=== PATIENT | female | born 1935 | race Caucasian/White ===

== ENCOUNTER 2017-02-25 11:00 | Emergency (ER) | payer MEDICARE, MEDICAID ==
[2017-02-25 11:13] VITALS: O2SAT 96
--- NOTE | 2017-02-25 11:15 | ED PDOC ---
HPI: Chest Pain Time Seen by Provider: 02/25/17 11:08 Chief Complaint (Nursing): Chest Pain History Per: Patient (Substernal chest pain x 1 week. Worse on inspirartion. No SOB. No cough or fever. Pain is non-radiating.) Onset/Duration Of Symptoms: Days (7) Quality: Aching Associated Symptoms: denies: Dyspnea Exacerbating Factors: Deep Breathing Alleviating Factors: None Past Medical History Vital Signs: Last Vital Signs Temp 98.3 F 02/25/17 11:12 Pulse 72 02/25/17 11:12 Resp 19 02/25/17 11:12 BP 134/83 02/25/17 11:12 Pulse Ox 96 02/25/17 11:15 - Medical History PMH: HTN - Family History Family History: States: Unknown Family Hx - Home Medications Home Medications: Ambulatory Orders Medication Instructions Recorded Albuterol 0.083% [Albuterol 0.083% 2.5 mg IH Q8 #1 neb 02/25/17 Inhal Jazmin (2.5 mg/3 ml) UD] Non-Formulary 1 ea .ROUTE Q6 #1 ea 02/25/17 predniSONE [predniSONE Tab] 10 mg PO TID #15 tab 02/25/17 - Allergies Allergies/Adverse Reactions: Allergies Allergy/AdvReac Type Severity Reaction Status Date / Time No Known Allergies Allergy Verified 02/25/17 11:03 Review of Systems ROS Statement: Except As Marked, All Systems Reviewed And Found Negative Cardiovascular: Positive for: Chest Pain Respiratory: Positive for: Pleuritic Pain. Negative for: Cough, Shortness of Breath Physical Exam - Reviewed Nursing Documentation Reviewed: Yes Vital Signs Reviewed: Yes - Physical Exam Appears: Positive for: Non-toxic, No Acute Distress Head Exam: Positive for: ATRAUMATIC, NORMAL INSPECTION, NORMOCEPHALIC Skin: Positive for: Normal Color, Warm, DRY Eye Exam: Positive for: EOMI, Normal appearance, PERRL ENT: Positive for: Normal ENT Inspection Neck: Positive for: Normal, Painless ROM Cardiovascular/Chest: Positive for: Regular Rate, Rhythm Respiratory: Positive for: CNT, Normal Breath Sounds Gastrointestinal/Abdominal: Positive for: Normal Exam, Bowel Sounds, Soft Back: Positive for: Normal Inspection Extremity: Positive for: Normal ROM Neurologic/Psych: Positive for: Alert, Oriented - Laboratory Results Result Diagrams: 02/25/17 11:30 11/30/17 11:30 - ECG O2 Sat by Pulse Oximetry: 96 Medical Decision Making Medical Decision Making: D/W Dr Espinoza. Most likely sxs are from pulmonary fibrosis and not CAD. Will dc on nebs and prednisone with f/u in office. Disposition - Clinical Impression Clinical Impression: Pulmonary fibrosis - Patient ED Disposition Is Patient to be Admitted: No Counseled Patient/Family Regarding: Studies Performed, Diagnosis, Need For Followup, Rx Given - Disposition Referrals: Vic Espinoza MD [Family Provider] - Disposition: Routine/Home Disposition Time: 13:57 Condition: FAIR Prescriptions: Albuterol 0.083% [Albuterol 0.083% Inhal Jazmin (2.5 mg/3 ml) UD] 2.5 mg IH Q8 #1 neb Non-Formulary 1 ea .ROUTE Q6 #1 ea predniSONE [predniSONE Tab] 10 mg PO TID #15 tab Instructions: Pulmonary Fibrosis (ED) Forms: [email or web address] (Swazi)
[2017-02-25 11:40] LABS: BASO # 0.1 K/uL (0.0-0.2); BASO % 0.6 % (0.0-2.0); EOS # 0.2 K/uL (0.0-0.7); EOS % 1.5 % (0.0-4.0); HEMATOCRIT 37.1 % (34.0-47.0); LYMPH % 16.4 % (20.0-40.0); MEAN CELL VOLUME 88.8 fl (81.0-99.0); MEAN CORPUSCULAR HEMOGLOBIN 28.7 pg (27.0-31.0); MEAN CORPUSCULAR HGB CONC 32.3 g/dL (33.0-37.0); MEAN PLATELET VOLUME 8.7 fl (7.2-11.7); MONO # 0.8 K/uL (0.0-0.8); MONO % 6.4 % (0.0-10.0); NEUT % 75.1 % (50.0-75.0); RED CELL DISTRIBUTION WIDTH 15.6 % (11.5-14.5)
[2017-02-25 12:00] LABS: BILIRUBIN,TOTAL 0.8 mg/dl (0.2-1.3); CARBON DIOXIDE 25 mmol/L (22-30); CHLORIDE 106 mmol/L (98-107); GFR AFRICAN-AMERICAN > 60; GLUCOSE,RANDOM 110 mg/dL (65-105); SODIUM 138 mmol/l (132-148)
[2017-02-25 12:01] LABS: ALB/GLOB RATIO 1.1 (1.0-2.1); ALKALINE PHOSPHATASE 44 U/L (38-126); ALT/SGPT 39 U/L (9-52); AST/SGOT 54 U/L (14-36); BLOOD UREA NITROGEN 23 mg/dl (7-17); TOTAL PROTEIN 7.3 G/DL (6.3-8.2)
--- NOTE | 2017-02-25 12:09 | RAD ---
HISTORY: chest pain COMPARISON: Chest x-ray performed 01/11/17 TECHNIQUE: Chest PA and lateral FINDINGS: Examination limited by habitus. LUNGS: Moderate interstitial fibrotic changes. Biapical pleural thickening. No focal consolidation. Please note that chest x-ray has limited sensitivity for the detection of pulmonary masses. PLEURA: No significant pleural effusion identified. No definite pneumothorax . CARDIOVASCULAR: Cardiomegaly. Ectatic aorta. Atherosclerotic calcifications. OSSEOUS STRUCTURES: Degenerative changes. VISUALIZED UPPER ABDOMEN: Right upper quadrant surgical clips. OTHER FINDINGS: None. IMPRESSION: Cardiomegaly. Ectatic aorta. Moderate interstitial fibrotic changes.
[2017-02-25 12:26] LABS: POTASSIUM 5.3 MMOL/L (3.6-5.0)
[2017-02-25] MEDS ORDERED: Sod Polystyrene Sulf 15 gm/60 ml Susp PO ONE (12:54)
[2017-02-25] MEDS ORDERED: Albuterol 0.083% Inhal Sol (2.5 mg/3 mL) UD INH STA (12:54)
[2017-02-25 14:44] VITALS: BP 132/76; PULSE 78; RESP 18; TEMP 98
--- NOTE | 2017-02-26 12:11 | CARD ---
APPROVED REPORT EKG Measurement Heart [id number] [id number] [id number] <Conclusion> Normal sinus rhythm Minimal voltage criteria for LVH, may be normal variant Borderline ECG
== END 2017-02-25 14:30 | disposition home or self-care (01) ==
LOC: H.ER 11:00
DX: J84.10 Pulmonary fibrosis, unspecified (principal); I10 Essential (primary) hypertension

== ENCOUNTER 2017-08-17 10:02 | Inpatient (IN) | payer MEDICARE, MEDICAID ==
[2017-08-17] MEDS ORDERED: Albuterol-Ipratrop 3 mg / 0.5 (3 ml) UD INH STA (10:15)
[2017-08-17] MEDS ORDERED: Albuterol-Ipratrop 3 mg / 0.5 (3 ml) UD ONE (10:42)
--- NOTE | 2017-08-17 10:54 | ED PDOC ---
HPI: SOB/CHF/COPD Time Seen by Provider: 08/17/17 10:15 Chief Complaint (Nursing): Shortness Of Breath Chief Complaint (Provider): SOB History Per: Patient, EMS History/Exam Limitations: clinical condition Onset/Duration Of Symptoms: Gradual Current Symptoms Are (Timing): Still Present Quality: Tightness Exacerbating Factor(s): Exertion, Coughing Current Respiratory Medications: See Home Med List Severity: Severe Additional Complaint(s): 81yo female, poor historian, arrives in moderate respiratory distress. Per ALS director of home health services called 911 for SOB, hypoxic to mid 80s on RA at home, been coughing for a few days also notes chest tightness when she coughs. Past Medical History Reviewed: Historical Data, Nursing Documentation, Vital Signs Vital Signs: Last Vital Signs Temp 97.8 F 08/20/17 08:04 Pulse 81 08/20/17 08:04 Resp 18 08/20/17 08:04 BP 144/79 08/20/17 08:51 Pulse Ox 93 L 08/20/17 08:04 - Medical History PMH: HTN - Family History Family History: States: Unknown Family Hx - Home Medications Home Medications: Ambulatory Orders Medication Instructions Recorded Budesonide/Formoterol Fumarate 2 puff IH Q12 08/17/17 [Symbicort 160-4.5 Mcg Inhaler] Donepezil [Aricept] 10 mg PO DAILY 08/17/17 Escitalopram [Lexapro] 20 mg PO DAILY 08/17/17 Furosemide [Lasix] 20 mg PO DAILY 08/17/17 Memantine [Namenda] 10 mg PO Q12 08/17/17 Mirtazapine [Remeron] 30 mg PO HS 08/17/17 Omeprazole [Omeprazole] 40 mg PO DAILY 08/17/17 Rosuvastatin Calcium [Crestor] 5 mg PO HS 08/17/17 SITagliptin [Januvia] 50 mg PO DAILY 08/17/17 Valsartan/Hydrochlorothiazide 1 tab PO DAILY 08/17/17 [Diovan Hct 160-12.5 mg Tab] - Allergies Allergies/Adverse Reactions: Allergies Allergy/AdvReac Type Severity Reaction Status Date / Time No Known Allergies Allergy Verified 02/25/17 11:03 - Laboratory Results Result Diagrams: 08/19/17 06:05 08/19/17 06:05 - ECG O2 Sat by Pulse Oximetry: 96 Medical Decision Making Medical Decision Making: workup for respiratory failure initiated Discussed w ALS, 12 lead in field no STEMI CXR reviewed +chronic appearing fibrotic pattern Remained in mild respiratory distress requiring O2 support and bronchodilators Admit to hospital Antibiotics were initiated empirically given clinical presentation, CXR findings. Disposition - Clinical Impression Clinical Impression: Respiratory distress, Respiratory tract infection, Pulmonary fibrosis - Patient ED Disposition Is Patient to be Admitted: Yes - Disposition Disposition Time: 11:45 Condition: FAIR - Pt Status Changed To: Hospital Disposition Of: Inpatient - Admit Certification Admit to Inpatient:: After my assessment, the patient will require hospitalization for at least two midnights. This is because of the severity of symptoms shown, intensity of services needed, and/or the medical risk in this patient being treated as an outpatient. - POA Present On Arrival: None
[2017-08-17 11:11] LABS: BASO # 0.1 K/uL (0.0-0.2); BASO % 0.5 % (0.0-2.0); EOS # 0.3 K/uL (0.0-0.7); EOS % 3.3 % (0.0-4.0); HEMOGLOBIN 11.8 g/dL (12.0-16.0); LYMPH # 3.5 K/uL (1.0-4.3); MEAN CELL VOLUME 84.1 fl (81.0-99.0); MEAN CORPUSCULAR HEMOGLOBIN 28.4 pg (27.0-31.0); MEAN CORPUSCULAR HGB CONC 33.8 g/dL (33.0-37.0); MEAN PLATELET VOLUME 8.2 fl (7.2-11.7); MONO # 0.6 K/uL (0.0-0.8); MONO % 6.1 % (0.0-10.0); NEUT # 5.5 K/uL (1.8-7.0); NEUT % 55.1 % (50.0-75.0); NRBC % 0.1 % (0.0-0.0); RBC 4.15 Mil/uL (3.80-5.20)
[2017-08-17] MEDS: Albuterol-Ipratrop 3 mg / 0.5 (3 ml) UD INH SCH ×4 (11:20→23:04)
[2017-08-17 11:22] LABS: BLOOD UREA NITROGEN 14 mg/dl (7-17); GFR AFRICAN-AMERICAN > 60; GFR NON-AFRICAN AMERICAN > 60
[2017-08-17 11:23] LABS: ALB/GLOB RATIO 0.9 (1.0-2.1); ALBUMIN 3.4 g/dL (3.5-5.0); ALT/SGPT 38 U/L (9-52); AST/SGOT 37 U/L (14-36); CALCIUM 8.8 mg/dL (8.4-10.2)
[2017-08-17 11:35] LABS: ABG ALLEN TEST YES; ARTERIAL BLOOD GAS HCO3 25.9 mmol/L (21-28); ARTERIAL BLOOD GAS HEMOGLOBIN 11.6 g/dL (11.7-17.4); ARTERIAL BLOOD GAS O2 CAPACITY 15.9 mL/dL (16-24); ARTERIAL BLOOD GAS O2 CONTENT 15.8 ML/dL (15-23); ARTERIAL BLOOD GAS O2 SAT 99.2 % (95-98); ARTERIAL BLOOD GAS PCO2 34 mm/Hg (35-45); ARTERIAL BLOOD GAS PH 7.47 (7.35-7.45); ARTERIAL BLOOD GAS PO2 93 mm/Hg (80-100); ARTERIAL BLOOD GAS TCO2 25.7 mmol/L (22-28)
[2017-08-17] MEDS ORDERED: Potassium Chloride 20 mEq ER Tab PO ONE ×2 (11:41→12:50)
[2017-08-17 11:45] LABS: B-TYPE NATRIURETIC PEPTIDE 520 pg/ml (0-900)
[2017-08-17] MEDS ORDERED: levoFLOXacin 750 mg in D5W 150 ML BAG IVPB STA (12:09)
[2017-08-17] MEDS ORDERED: levoFLOXacin 750 mg in D5W 750 MG/150 ML BAG IVPB STA (12:14)
--- NOTE | 2017-08-17 12:32 | RAD ---
HISTORY: chest pain/ r/o infiltrate COMPARISON: 02/25/2017 12/17/2009 TECHNIQUE: Chest PA and lateral FINDINGS: LUNGS: Chronic interstitial lung disease similar to that identified on the most recent chest x-ray, progressive compared to 12/17/2009. PLEURA: No significant pleural effusion identified. No pneumothorax apparent. CARDIOVASCULAR: Cardiomegaly. No evidence of acute, significant cardiovascular disease. OSSEOUS STRUCTURES: No significant abnormalities. VISUALIZED UPPER ABDOMEN: Normal. OTHER FINDINGS: None. IMPRESSION: Chronic interstitial lung disease stable compared to 02/25/2017. No active pulmonary disease/ infiltrates.
[2017-08-17] MEDS ORDERED: levoFLOXacin 500 mg in D5W 0 MG/0 ML BAG IVPB ONE (12:50)
[2017-08-17] MEDS ORDERED: levoFLOXacin 750 mg in D5W 750 MG/150 ML BAG IVPB ONE (12:52)
--- NOTE | 2017-08-17 13:37 | CP.PCM.HP ---
History of Present Illness - History of Present Illness History of Present Illness: CC: shortness of breath and cough HPI: This is an 81 year old female, patient of Dr. Espinoza, history of idiopathic pulmonary fibrosis, HTN, early dementia, DM, dyslipidemia, presents to the emergency room with a two week history of progressively worsening moderate shortness of breath, associated with cough with mild yellow sputum production. Afebrile, no WBC, saturating about 95% 2L NC in ED, improving with bronchodilators and steroids. Patient continues to be mildly dyspneic at rest and with speaking. Mild use of accessory muscles. No home O2. Patient to be placed on OBS for idiopathic pulmonary fibrosis exacerbation. Discussed with patient's primary care physician, Dr. Espinoza, ED physician, as well as [employer], Dr. Macario. HD stable, NAD. ROS: per HPI, all other systems reviewed and negative PMSH: idiopathic pulmonary fibrosis, HTN, early dementia, DM, dyslipidemia FH: denies SH: quit smoking 20 years ago, denies ETOH, IVDU Meds: states she is compliant, as below NKDA Present on Admission - Present on Admission Any Indicators Present on Admission: No Past Patient History - Infectious Disease Hx of Infectious Diseases: None - Past Social History Smoking Status: Never Smoked - CARDIAC Hx Hypertension: Yes - PULMONARY Hx Respiratory Disorders: No - ENDOCRINE/METABOLIC Hx Endocrine Disorders: Yes Hx Diabetes Mellitus Type 2: Yes - MUSCULOSKELETAL/RHEUMATOLOGICAL Hx Musculoskeletal Disorders: Yes Hx Back Pain: Yes - PSYCHIATRIC Hx Psychophysiologic Disorder: No Hx Substance Use: No - SURGICAL HISTORY Hx Surgeries: Yes Hx Section: Yes - ANESTHESIA Hx Anesthesia: Yes Hx Anesthesia Reactions: No Meds Allergies/Adverse Reactions: Allergies Allergy/AdvReac Type Severity Reaction Status Date / Time No Known Allergies Allergy Verified 02/25/17 11:03 Physical Exam - Constitutional Additional comments: Vitals Reviewed GEN: WDWN, alert, cooperative HEENT: NCAT, PERRL, EOMI HEART: RRR, +S1S2, NO MRG LUNG: wheezes and rhonchi bilaterally. mild fatigue with speaking, mild accessory muscle use. ABD: soft, NT, ND, No HSM, No masses EXT: normal pedal pulses, normal capillary refill NEURO: awake, alert, no focal deficits SKIN: warm, dry PSYCH: normal mood, normal affect Results - Vital Signs Recent Vital Signs: Last Vital Signs Temp 98.8 F 05/22/18 10:09 Pulse 82 08/17/17 10:09 Resp 22 08/17/17 10:58 BP 119/69 08/17/17 10:09 Pulse Ox 96 08/17/17 12:14 - Labs Result Diagrams: 08/17/17 10:40 08/17/17 10:40 Labs: Laboratory Results - last 24 hr 08/17/17 08/17/17 08/17/17 10:40 10:40 10:42 WBC 10.0 RBC 4.15 Hgb 11.8 L Hct 34.9 MCV 84.1 D MCH 28.4 MCHC 33.8 RDW 16.0 H Plt Count 234 MPV 8.2 Neut % (Auto) 55.1 Lymph % (Auto) 35.0 Conway % (Auto) 6.1 Eos % (Auto) 3.3 Baso % (Auto) 0.5 Neut # (Auto) 5.5 Lymph # (Auto) 3.5 Conway # (Auto) 0.6 Eos # (Auto) 0.3 Baso # (Auto) 0.1 pCO2 pO2 HCO3 ABG pH ABG Total CO2 ABG O2 Saturation ABG O2 Content ABG Base Excess ABG Hemoglobin ABG Carboxyhemoglobin POC ABG HHb (Measured) ABG Methemoglobin ABG O2 Capacity Erasmo Test A-a O2 Difference Hgb O2 Saturation Liter Flow Vent Mode FiO2 Sodium 140 Potassium 3.5 L Chloride 103 Carbon Dioxide 24 Anion Gap 17 BUN 14 Creatinine 0.5 L Est GFR ( Amer) > 60 Est GFR (Non-Af Amer) > 60 POC Glucose (mg/dL) 157 H Random Glucose 172 H Calcium 8.8 Total Bilirubin 0.5 AST 37 H D ALT 38 Alkaline Phosphatase 58 Troponin I 0.0200 NT-Pro-B Natriuret Pep 520 Total Protein 7.1 Albumin 3.4 L Globulin 3.6 Albumin/Globulin Ratio 0.9 L 08/17/17 11:15 WBC RBC Hgb Hct MCV MCH MCHC RDW Plt Count MPV Neut % (Auto) Lymph % (Auto) Conway % (Auto) Eos % (Auto) Baso % (Auto) Neut # (Auto) Lymph # (Auto) Conway # (Auto) Eos # (Auto) Baso # (Auto) pCO2 34 L pO2 93 HCO3 25.9 ABG pH 7.47 H ABG Total CO2 25.7 ABG O2 Saturation 99.2 H ABG O2 Content 15.8 ABG Base Excess 1.3 ABG Hemoglobin 11.6 L ABG Carboxyhemoglobin 2.1 H POC ABG HHb (Measured) 0.8 ABG Methemoglobin 1.1 ABG O2 Capacity 15.9 L Erasmo Test Yes A-a O2 Difference 64.0 Hgb O2 Saturation 96.0 Liter Flow 2 Vent Mode Nc FiO2 28.0 Sodium Potassium Chloride Carbon Dioxide Anion Gap BUN Creatinine Est GFR ( Amer) Est GFR (Non-Af Amer) POC Glucose (mg/dL) Random Glucose Calcium Total Bilirubin AST ALT Alkaline Phosphatase Troponin I NT-Pro-B Natriuret Pep Total Protein Albumin Globulin Albumin/Globulin Ratio Assessment & Plan - Assessment and Plan (Free Text) Plan: 81 year old female, patient of Dr. Espinoza, history of idiopathic pulmonary fibrosis, HTN, early dementia, DM, dyslipidemia, presents to the emergency room with a two week history of progressively worsening moderate shortness of breath , associated with cough with mild yellow sputum production. Afebrile, no WBC, saturating about 95% 2L NC in ED, improving with bronchodilators and steroids. Patient continues to be mildly dyspneic at rest and with speaking. Mild use of accessory muscles. No home O2. Patient to be placed on OBS for idiopathic pulmonary fibrosis exacerbation. Discussed with patient's primary care physician , Dr. Espinoza, ED physician, as well as [employer], Dr. Macario. HD stable, NAD. Idiopathic Pulmonary Fibrosis Exacerbation - 2 wks worsening dyspnea with cough, procalcitonin pending to rule out infection, no WBC, afebrile - Duonebs q4, Solumedrol 60 q8, will titrate down as necessary, still wheezing with fatigue during speaking - Pulmonology Consult: Dr. Macario appreciated and followed - pt currently on 2L NC, 95% HTN - continue lasix, HCTZ, Valsartan Early Dementia - continue Namenda, Remeron, Lexapro, and Aricept DM - continue Januvia 50 mg daily - Accuchecks with ISS coverage Dyslipidemia - continue Statin
--- NOTE | 2017-08-17 13:43 | CARD ---
APPROVED REPORT EKG Measurement Heart [id number] <Conclusion> Normal sinus rhythm Normal ECG
[2017-08-17] MEDS ORDERED: Albuterol-Ipratrop 3 mg / 0.5 (3 ml) UD INH PRN ×4 (13:47→14:30)
[2017-08-17] MEDS ORDERED: Sodium Chloride 3% for Inhalation 4 ML VIAL.NEB IH PRN (17:30)
[2017-08-17] MEDS: Insulin Lispro (humaLOG) 100 Units/ml Inj SC SCH (18:17)
[2017-08-17] MEDS ORDERED: methylPREDNISolone 80 MG in Sodium Chloride 0.9% 50 ML IVPB SCH (21:00)
--- NOTE | 2017-08-18 01:07 | CON ---
DATE: HISTORY OF PRESENT ILLNESS: Ms. Verdugo is an 81-year-old female who was admitted via the emergency room because of respiratory distress for several days prior to presentation, worse on the day of admission. Family had called ALS and she was brought to the emergency room with an O2 saturation of about 80 on room air. She was coughing and appear cyanotic, she was evaluated and I advised admission for workup and therapy. PAST MEDICAL HISTORY: She has a past medical history of pulmonary fibrosis, hypertension, and dementia. FAMILY HISTORY: Noncontributory. SOCIAL HISTORY: She does not smoke or drink. REVIEW OF SYSTEMS: Essentially remarkable for shortness of breath and exercise intolerance. PHYSICAL EXAMINATION: GENERAL: The patient is alert and confused to place and time, but oriented to person. VITAL SIGNS: Blood pressure 119/69, pulse of 82, respiratory rate 22 per minute, O2 sat is 80% on room air, and 98% on nasal cannula oxygen. Temperature 98.8 degrees Fahrenheit. SKIN: Shows fair turgor. Pupils are equal and reactive to light and accommodation. Mouth shows fair hygiene. JVP flat. LUNGS: Poor aeration, rales. HEART: S1 and S2. BREASTS: Normal. ABDOMEN: Soft and nontender. No organomegaly. EXTREMITIES: Shows trace pitting pedal edema. CENTRAL NERVOUS SYSTEM: Grossly intact except for confusion. There is no acrocyanosis noted. LABORATORY DATA: Remarkable for WBC of 10, hemoglobin 11.8, and platelet count of 234,000. Sodium 140, potassium 3.5, BUN 14, creatinine 0.5, and serum glucose 172. Chest x-ray is remarkable for chronic interstitial lung changes. EKG, normal sinus rhythm. 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 PLAN: Oxygen supplementation, IV steroids as well as bronchodilators. We will continue therapy as ordered. Obtain sputum for Gram-stain and cultures. Case discussed with the patient's daughter who is looking towards some form of placement in an assisted living and we will discuss the case with social media strategist in the morning. We will continue to follow with you. Kevin Macario MD
[2017-08-18] MEDS: Albuterol-Ipratrop 3 mg / 0.5 (3 ml) UD INH SCH ×6 (03:56→23:06)
[2017-08-18 06:11] LABS: HEMOGLOBIN 12.1 g/dL (12.0-16.0); MEAN CELL VOLUME 85.8 fl (81.0-99.0); MEAN CORPUSCULAR HEMOGLOBIN 27.9 pg (27.0-31.0); MEAN CORPUSCULAR HGB CONC 32.6 g/dL (33.0-37.0); RBC 4.34 Mil/uL (3.80-5.20); RED CELL DISTRIBUTION WIDTH 16.6 % (11.5-14.5); WHITE BLOOD COUNT 9.8 K/uL (4.8-10.8)
[2017-08-18 06:36] LABS: ABG ALLEN TEST YES; ARTERIAL BLOOD GAS HCO3 24.2 mmol/L (21-28); ARTERIAL BLOOD GAS HEMOGLOBIN 12.4 g/dL (11.7-17.4); ARTERIAL BLOOD GAS O2 CAPACITY 16.9 mL/dL (16-24); ARTERIAL BLOOD GAS O2 CONTENT 16.5 ML/dL (15-23); ARTERIAL BLOOD GAS O2 SAT 97.5 % (95-98); ARTERIAL BLOOD GAS PCO2 47 mm/Hg (35-45); ARTERIAL BLOOD GAS PH 7.34 (7.35-7.45); ARTERIAL BLOOD GAS PO2 82 mm/Hg (80-100); ARTERIAL BLOOD GAS TCO2 26.8 mmol/L (22-28)
[2017-08-18 06:45] LABS: BLOOD UREA NITROGEN 18 mg/dl (7-17); CALCIUM 9.2 mg/dL (8.4-10.2); GFR AFRICAN-AMERICAN > 60; GFR NON-AFRICAN AMERICAN > 60
[2017-08-18 08:25] LABS: ABG ALLEN TEST YES; ARTERIAL BLOOD GAS HCO3 24.6 mmol/L (21-28); ARTERIAL BLOOD GAS HEMOGLOBIN 12.8 g/dL (11.7-17.4); ARTERIAL BLOOD GAS O2 CAPACITY 17.4 mL/dL (16-24); ARTERIAL BLOOD GAS O2 CONTENT 16.1 ML/dL (15-23); ARTERIAL BLOOD GAS O2 SAT 92.5 % (95-98); ARTERIAL BLOOD GAS PCO2 41 mm/Hg (35-45); ARTERIAL BLOOD GAS PH 7.39 (7.35-7.45); ARTERIAL BLOOD GAS PO2 55 mm/Hg (80-100); ARTERIAL BLOOD GAS TCO2 26.1 mmol/L (22-28)
[2017-08-18] MEDS ORDERED: Patient's Own Med (Valsartan/Hydrochlorothiazide [Diovan Hct 160-12.5 Mg Tab] 1 TAB) PO SCH (09:00)
[2017-08-18] MEDS: Enoxaparin 40 mg Syringe SC SCH (09:16)
[2017-08-18] MEDS: Pantoprazole 40 mg EC Tab PO SCH (09:17)
[2017-08-18] MEDS: Insulin Lispro (humaLOG) 100 Units/ml Inj SC SCH ×4 (09:27→21:12)
--- NOTE | 2017-08-18 10:07 | CP.PCM.PN ---
Subjective - Date & Time of Evaluation Date of Evaluation: 08/18/17 Time of Evaluation: 10:07 - Subjective Subjective: SOB IMPROVING COUGH LESS Objective - Vital Signs/Intake and Output Vital Signs (last 24 hours): Temp Pulse Resp BP Pulse Ox 97.4 F L 62 20 95/56 L 94 L 08/18/17 07:56 08/18/17 07:56 08/18/17 07:56 08/18/17 09:19 08/18/17 07:56 - Medications Medications: Current Medications Albuterol/Ipratropium (Duoneb 3 Mg/0.5 Mg (3 Ml) Ud) 3 ml INH RQ4 [facility] Last Admin: 08/18/17 07:45 Dose: 3 ml Albuterol/Ipratropium (Duoneb 3 Mg/0.5 Mg (3 Ml) Ud) 3 ml INH RQ2 PRN PRN Reason: Shortness of Breath Atorvastatin Calcium (Lipitor) 10 mg PO HS [facility] Last Admin: 08/17/17 22:07 Dose: 10 mg Donepezil HCl (Aricept) 10 mg PO DAILY [facility] Enoxaparin Sodium (Lovenox) 40 mg SC DAILY [facility] PRN Reason: Protocol Last Admin: 08/18/17 09:16 Dose: 40 mg Escitalopram Oxalate (Lexapro) 20 mg PO DAILY [facility] Last Admin: 08/18/17 09:20 Dose: 20 mg Furosemide (Lasix) 20 mg PO DAILY [facility] Last Admin: 08/18/17 09:19 Dose: 20 mg Hydrochlorothiazide (Microzide) 12.5 mg PO DAILY [facility] Last Admin: 08/18/17 09:16 Dose: 12.5 mg Insulin Human Lispro (Humalog) 0 units SC [facility] PRN Reason: Protocol Last Admin: 08/18/17 09:27 Dose: 1 unit Memantine (Namenda) 10 mg PO Q12 [facility] Last Admin: 08/18/17 09:20 Dose: 10 mg Methylprednisolone (Solu-Medrol) 80 mg IV BID [facility] Last Admin: 08/18/17 09:17 Dose: 80 mg Mirtazapine (Remeron) 30 mg PO HS [facility] Last Admin: 08/17/17 22:07 Dose: 30 mg Pantoprazole Sodium (Protonix Ec Tab) 40 mg PO DAILY [facility] Last Admin: 05/23/18 09:17 Dose: 40 mg Promethazine HCl/Dextromethorphan (Phenergan Dm Syrup) 10 ml PO Q6 PRN PRN Reason: Cough Sitagliptin Phosphate (Januvia) 50 mg PO DAILY [facility] Last Admin: 08/18/17 09:17 Dose: 50 mg Valsartan (Diovan) 160 mg PO DAILY [facility] Last Admin: 08/18/17 09:19 Dose: 160 mg - Labs Labs: 08/18/17 06:00 08/18/17 06:00 - Constitutional Appears: No Acute Distress - Head Exam Head Exam: ATRAUMATIC, NORMAL INSPECTION, NORMOCEPHALIC - Eye Exam Eye Exam: EOMI, Normal appearance, PERRL Pupil Exam: NORMAL ACCOMODATION, PERRL - ENT Exam ENT Exam: Mucous Membranes Moist, Normal Exam - Neck Exam Neck Exam: Full ROM, Normal Inspection. absent: Lymphadenopathy - Respiratory Exam Respiratory Exam: Decreased Breath Sounds, Prolonged Expiratory Phase, Rales, Wheezes, NORMAL BREATHING PATTERN - Cardiovascular Exam Cardiovascular Exam: REGULAR RHYTHM, +S1, +S2. absent: Murmur - GI/Abdominal Exam GI & Abdominal Exam: Soft, Normal Bowel Sounds. absent: Tenderness - Rectal Exam Rectal Exam: NORMAL INSPECTION - Extremities Exam Extremities Exam: Full ROM, Normal Capillary Refill, Normal Inspection. absent : Joint Swelling, Pedal Edema - Back Exam Back Exam: NORMAL INSPECTION - Neurological Exam Neurological Exam: Alert, Awake, CN II-XII Intact, Normal Gait, Oriented x3 - Psychiatric Exam Psychiatric exam: Normal Affect, Normal Mood - Skin Skin Exam: Dry, Intact, Normal Color, Warm Assessment and Plan - Assessment and Plan (Free Text) Assessment: ACUTE EXAC OF PULMONARY FIBROSIS HYPOXEMIA Plan: CONTINUE O2,AEROSOLIZED BRONCHODILATORS AND IV STEROIDS WILL NEED HOME OXYGEN AND PO STEROIDS ON D/C HOME RETREAD BUILDER TO DISCUS DISPOSITION WITH FAMILY CASE DISCUSSED WITH DR BILL
[2017-08-18] MEDS: levoFLOXacin 500 mg in D5W 500 MG/100 ML BAG IVPB SCH (11:08)
--- NOTE | 2017-08-18 14:00 | CP.PCM.PN ---
Subjective - Date & Time of Evaluation Date of Evaluation: 08/18/17 Time of Evaluation: 11:30 - Subjective Subjective: Patient seen and examined bedside. Feeling better . Still with dyspnea especially while talking 94 % on 2 l O2 via Nc No acute issues overnight Denies any chest pain Unable to expectorate CXR showed bilateral chronic interstitial lung disease Objective - Vital Signs/Intake and Output Vital Signs (last 24 hours): Temp Pulse Resp BP Pulse Ox 97.4 F L 62 20 95/56 L 94 L 08/18/17 07:56 08/18/17 07:56 08/18/17 07:56 08/18/17 09:19 08/18/17 07:56 - Medications Medications: Current Medications Albuterol/Ipratropium (Duoneb 3 Mg/0.5 Mg (3 Ml) Ud) 3 ml INH RQ4 [facility] Last Admin: 08/18/17 11:19 Dose: 3 ml Albuterol/Ipratropium (Duoneb 3 Mg/0.5 Mg (3 Ml) Ud) 3 ml INH RQ2 PRN PRN Reason: Shortness of Breath Atorvastatin Calcium (Lipitor) 10 mg PO HS [facility] Last Admin: 08/17/17 22:07 Dose: 10 mg Donepezil HCl (Aricept) 10 mg PO DAILY [facility] Enoxaparin Sodium (Lovenox) 40 mg SC DAILY [facility] PRN Reason: Protocol Last Admin: 08/18/17 09:16 Dose: 40 mg Escitalopram Oxalate (Lexapro) 20 mg PO DAILY [facility] Last Admin: 08/18/17 09:20 Dose: 20 mg Furosemide (Lasix) 20 mg PO DAILY [facility] Last Admin: 08/18/17 09:19 Dose: 20 mg Hydrochlorothiazide (Microzide) 12.5 mg PO DAILY [facility] Last Admin: 08/18/17 09:16 Dose: 12.5 mg Levofloxacin/Dextrose (Levaquin 500mg) 500 mg in 100 mls @ 100 mls/hr IVPB DAILY [facility] PRN Reason: Protocol Last Admin: 08/18/17 11:08 Dose: 100 mls/hr Insulin Human Lispro (Humalog) 0 units SC ACHS [facility] PRN Reason: Protocol Last Admin: 08/18/17 12:42 Dose: 1 unit Memantine (Namenda) 10 mg PO Q12 [facility] Last Admin: 08/18/17 09:20 Dose: 10 mg Methylprednisolone (Solu-Medrol) 80 mg IV BID [facility] Last Admin: 08/18/17 09:17 Dose: 80 mg Mirtazapine (Remeron) 30 mg PO HS [facility] Last Admin: 08/17/17 22:07 Dose: 30 mg Pantoprazole Sodium (Protonix Ec Tab) 40 mg PO DAILY [facility] Last Admin: 08/18/17 09:17 Dose: 40 mg Promethazine HCl/Dextromethorphan (Phenergan Dm Syrup) 10 ml PO Q6 PRN PRN Reason: Cough Sitagliptin Phosphate (Januvia) 50 mg PO DAILY [facility] Last Admin: 08/18/17 09:17 Dose: 50 mg Valsartan (Diovan) 160 mg PO DAILY [facility] Last Admin: 08/18/17 09:19 Dose: 160 mg - Labs Labs: 08/18/17 06:00 08/18/17 06:00 - Constitutional Appears: Non-toxic, No Acute Distress - Head Exam Head Exam: ATRAUMATIC, NORMAL INSPECTION, NORMOCEPHALIC - Eye Exam Eye Exam: EOMI, Normal appearance, PERRL Pupil Exam: NORMAL ACCOMODATION - ENT Exam ENT Exam: Mucous Membranes Moist, Normal Exam - Neck Exam Neck Exam: Full ROM, Normal Inspection - Respiratory Exam Respiratory Exam: Rales. absent: Wheezes - Cardiovascular Exam Cardiovascular Exam: REGULAR RHYTHM, RRR, +S1, +S2. absent: JVD - GI/Abdominal Exam GI & Abdominal Exam: Soft, Normal Bowel Sounds. absent: Distended, Guarding, Rebound - Rectal Exam Rectal Exam: Deferred - Extremities Exam Extremities Exam: Full ROM, Normal Capillary Refill, Normal Inspection. absent : Pedal Edema - Back Exam Back Exam: NORMAL INSPECTION - Neurological Exam Neurological Exam: Alert, Awake, CN II-XII Intact, Oriented x3 - Psychiatric Exam Psychiatric exam: Normal Affect, Normal Mood - Skin Skin Exam: Dry, Normal Color, Warm Assessment and Plan - Assessment and Plan (Free Text) Assessment: 81 year old female with PMH of idiopathic pulmonary fibrosis, HTN, early dementia, DM, dyslipidemia, presented to the emergency room with a two week history of progressively worsening moderate shortness of breath, associated with cough with mild yellow sputum production. CXR showed bilateral chronic interstitial fibrosis Patient dyspneic at rest and with speaking. Mild use of accessory muscles. She was admitted in [facility]/surg , started on IV solumedrol and pulmonary consulted 1.Idiopathic Pulmonary Fibrosis Exacerbation slightly improving with steroids and O2 via NC unable to expectorate pulmonary on consult Continue Methylprednisolone 80 mg IV Q12 , O2 vi anC , duonebs Will most likely need home oxygen on Levaquine Iv 2. HTN on the low side continue lasix, HCTZ, Valsartan 3. Early Dementia on Namenda, Remeron, Lexapro, and Aricept 4.DM type II continue Januvia 50 mg daily Accuchecks with ISS coverage 5. Dyslipidemia on Statin 6. DVT prophylaxis SCD Lovenox
[2017-08-19] MEDS: Promethazine DM 12.5 mg-30 mg/10 ml Syrup PO PRN (00:16)
[2017-08-19] MEDS: Albuterol-Ipratrop 3 mg / 0.5 (3 ml) UD INH SCH ×5 (04:33→19:27)
[2017-08-19 06:25] LABS: HEMOGLOBIN 11.8 g/dL (12.0-16.0); MEAN CELL VOLUME 84.9 fl (81.0-99.0); MEAN CORPUSCULAR HEMOGLOBIN 27.9 pg (27.0-31.0); MEAN CORPUSCULAR HGB CONC 32.9 g/dL (33.0-37.0); RBC 4.22 Mil/uL (3.80-5.20); RED CELL DISTRIBUTION WIDTH 16.5 % (11.5-14.5); WHITE BLOOD COUNT 13.2 K/uL (4.8-10.8)
[2017-08-19 06:26] LABS: BLOOD UREA NITROGEN 26 mg/dl (7-17); GFR AFRICAN-AMERICAN > 60; GFR NON-AFRICAN AMERICAN > 60
[2017-08-19] MEDS: Pantoprazole 40 mg EC Tab PO SCH (08:32)
[2017-08-19] MEDS: levoFLOXacin 500 mg in D5W 500 MG/100 ML BAG IVPB SCH (08:33)
[2017-08-19] MEDS: Enoxaparin 40 mg Syringe SC SCH (08:34)
[2017-08-19] MEDS: Insulin Lispro (humaLOG) 100 Units/ml Inj SC SCH ×4 (08:34→21:51)
--- NOTE | 2017-08-19 09:26 | CP.PCM.PN ---
Subjective - Date & Time of Evaluation Date of Evaluation: 08/19/17 Time of Evaluation: 09:32 - Subjective Subjective: CLINICALLY IMPROVED SOB LESS ON O2 Objective - Vital Signs/Intake and Output Vital Signs (last 24 hours): Temp Pulse Resp BP Pulse Ox 97.5 F L 68 20 127/73 97 08/19/17 07:44 08/19/17 07:44 08/19/17 07:44 08/19/17 08:33 08/19/17 07:44 - Medications Medications: Current Medications Albuterol/Ipratropium (Duoneb 3 Mg/0.5 Mg (3 Ml) Ud) 3 ml INH RQ4 [facility] Last Admin: 08/19/17 07:06 Dose: 3 ml Albuterol/Ipratropium (Duoneb 3 Mg/0.5 Mg (3 Ml) Ud) 3 ml INH RQ2 PRN PRN Reason: Shortness of Breath Atorvastatin Calcium (Lipitor) 10 mg PO HS REPLACED BY [facility] Last Admin: 08/18/17 21:13 Dose: 10 mg Donepezil HCl (Aricept) 10 mg PO DAILY [facility]PL[facility] BY [facility] Last Admin: 08/19/17 08:35 Dose: 10 mg Enoxaparin Sodium (Lovenox) 40 mg SC DAILY [facility]PL[facility]ED BY [facility] PRN Reason: Protocol Last Admin: 08/19/17 08:34 Dose: 40 mg Escitalopram Oxalate (Lexapro) 20 mg PO DAILY [facility] BY [facility] Last Admin: 08/19/17 08:32 Dose: 20 mg Furosemide (Lasix) 20 mg PO DAILY [facility] BY [facility] Last Admin: 08/19/17 08:33 Dose: 20 mg Hydrochlorothiazide (Microzide) 12.5 mg PO DAILY [facility] BY [facility] Last Admin: 08/19/17 08:32 Dose: 12.5 mg Levofloxacin/Dextrose (Levaquin 500mg) 500 mg in 100 mls @ 100 mls/hr IVPB DAILY [facility]PL[facility] BY [facility] PRN Reason: Protocol Last Admin: 08/19/17 08:33 Dose: 100 mls/hr Insulin Human Lispro (Humalog) 0 units SC ACHS REPLACED BY [facility] PRN Reason: Protocol Last Admin: 08/19/17 08:34 Dose: 1 unit Memantine (Namenda) 10 mg PO Q12 REPLACED BY [facility] Last Admin: 08/19/17 08:33 Dose: 10 mg Methylprednisolone (Solu-Medrol) 80 mg IV BID REPLACED BY [facility] Last Admin: 08/19/17 08:34 Dose: 80 mg Mirtazapine (Remeron) 30 mg PO HS REPLACED BY [facility] Last Admin: 08/18/17 21:13 Dose: 30 mg Pantoprazole Sodium (Protonix Ec Tab) 40 mg PO DAILY REPL[facility]ED BY [facility] Last Admin: 08/19/17 08:32 Dose: 40 mg Promethazine HCl/Dextromethorphan (Phenergan Dm Syrup) 10 ml PO Q6 PRN PRN Reason: Cough Last Admin: 08/19/17 00:16 Dose: 10 ml Sitagliptin Phosphate (Januvia) 50 mg PO DAILY REPL[facility]ED BY [facility] Last Admin: 08/19/17 08:32 Dose: 50 mg Valsartan (Diovan) 160 mg PO DAILY REPL[facility]ED BY [facility] Last Admin: 08/19/17 08:35 Dose: 160 mg - Labs Labs: 08/19/17 06:05 08/19/17 06:05 - Constitutional Appears: No Acute Distress - Head Exam Head Exam: ATRAUMATIC, NORMAL INSPECTION, NORMOCEPHALIC - Eye Exam Eye Exam: EOMI, Normal appearance, PERRL Pupil Exam: NORMAL ACCOMODATION, PERRL - ENT Exam ENT Exam: Mucous Membranes Moist, Normal Exam - Neck Exam Neck Exam: Full ROM, Normal Inspection. absent: Lymphadenopathy - Respiratory Exam Respiratory Exam: Clear to Ausculation Bilateral, NORMAL BREATHING PATTERN - Cardiovascular Exam Cardiovascular Exam: REGULAR RHYTHM, +S1, +S2. absent: Murmur - GI/Abdominal Exam GI & Abdominal Exam: Soft, Normal Bowel Sounds. absent: Tenderness - Rectal Exam Rectal Exam: NORMAL INSPECTION - Exam Exam: Circumcision, NORMAL INSPECTION External exam: NORMAL EXTERNAL EXAM Speculum exam: NORMAL SPECULUM EXAM Bimanual exam: NORMAL BIMANUAL EXAM - Extremities Exam Extremities Exam: Full ROM, Normal Capillary Refill, Normal Inspection. absent : Joint Swelling, Pedal Edema - Back Exam Back Exam: NORMAL INSPECTION - Neurological Exam Neurological Exam: Alert, Awake, CN II-XII Intact, Normal Gait, Oriented x3 - Psychiatric Exam Psychiatric exam: Normal Affect, Normal Mood - Skin Skin Exam: Dry, Intact, Normal Color, Warm Assessment and Plan - Assessment and Plan (Free Text) Assessment: PULMONARY FIBROSIS[INTERSTITIAL LUNG DZ] HYPOXEMIA--IMP[ROVED WITH O2 Plan: OK TO D/C TO SUBACUTE CARE WILL NEED CHRONIC 02 THERAPY AT 2-3L/M ON DISCHARGE HOME TAPER STEROIDS
[2017-08-19] MEDS: MethylPREDNISolone 40 mg Vial IV SCH (16:17)
--- NOTE | 2017-08-19 16:59 | CP.PCM.PN ---
Subjective - Date & Time of Evaluation Date of Evaluation: 08/19/17 Time of Evaluation: 11:00 - Subjective Subjective: Pt has no fever still with SOB especially with exertion requires Oxygen per NC dry cough denies CP no abd pain Objective - Vital Signs/Intake and Output Vital Signs (last 24 hours): Temp Pulse Resp BP Pulse Ox 97.5 F L 73 20 152/72 H 100 08/19/17 16:33 08/19/17 16:33 08/19/17 16:33 08/19/17 16:33 08/19/17 16:33 - Medications Medications: Current Medications Albuterol/Ipratropium (Duoneb 3 Mg/0.5 Mg (3 Ml) Ud) 3 ml INH RQ4 [facility] Last Admin: 08/19/17 15:13 Dose: 3 ml Albuterol/Ipratropium (Duoneb 3 Mg/0.5 Mg (3 Ml) Ud) 3 ml INH RQ2 PRN PRN Reason: Shortness of Breath Atorvastatin Calcium (Lipitor) 10 mg PO HS [facility] Last Admin: 08/18/17 21:13 Dose: 10 mg Donepezil HCl (Aricept) 10 mg PO DAILY [facility] Last Admin: 08/19/17 08:35 Dose: 10 mg Enoxaparin Sodium (Lovenox) 40 mg SC DAILY [facility] PRN Reason: Protocol Last Admin: 08/19/17 08:34 Dose: 40 mg Escitalopram Oxalate (Lexapro) 20 mg PO DAILY [facility] Last Admin: 08/19/17 08:32 Dose: 20 mg Furosemide (Lasix) 20 mg PO DAILY [facility] Last Admin: 08/19/17 08:33 Dose: 20 mg Hydrochlorothiazide (Microzide) 12.5 mg PO DAILY [facility] Last Admin: 08/19/17 08:32 Dose: 12.5 mg Levofloxacin/Dextrose (Levaquin 500mg) 500 mg in 100 mls @ 100 mls/hr IVPB DAILY [facility] PRN Reason: Protocol Last Admin: 08/19/17 08:33 Dose: 100 mls/hr Insulin Human Lispro (Humalog) 0 units SC ACHS [facility] PRN Reason: Protocol Last Admin: 08/19/17 16:21 Dose: 2 unit Memantine (Namenda) 10 mg PO Q12 [facility] Last Admin: 08/19/17 08:33 Dose: 10 mg Methylprednisolone (Solu-Medrol) 40 mg IV BID [facility] Last Admin: 08/19/17 16:17 Dose: 40 mg Mirtazapine (Remeron) 30 mg PO HS [facility] Last Admin: 08/18/17 21:13 Dose: 30 mg Pantoprazole Sodium (Protonix Ec Tab) 40 mg PO DAILY [facility] Last Admin: 08/19/17 08:32 Dose: 40 mg Promethazine HCl/Dextromethorphan (Phenergan Dm Syrup) 10 ml PO Q6 PRN PRN Reason: Cough Last Admin: 08/19/17 00:16 Dose: 10 ml Sitagliptin Phosphate (Januvia) 50 mg PO DAILY [facility] Last Admin: 08/19/17 08:32 Dose: 50 mg Valsartan (Diovan) 160 mg PO DAILY [facility] Last Admin: 08/19/17 08:35 Dose: 160 mg - Labs Labs: 08/19/17 06:05 08/19/17 06:05 - Constitutional Appears: No Acute Distress - Head Exam Head Exam: NORMAL INSPECTION, NORMOCEPHALIC - Eye Exam Eye Exam: EOMI, Normal appearance Pupil Exam: NORMAL ACCOMODATION - ENT Exam ENT Exam: Mucous Membranes Moist, Normal External Ear Exam - Neck Exam Neck Exam: Full ROM. absent: Meningismus - Respiratory Exam Respiratory Exam: Rales, Rhonchi. absent: Wheezes, Respiratory Distress - Cardiovascular Exam Cardiovascular Exam: REGULAR RHYTHM, +S1, +S2 - GI/Abdominal Exam GI & Abdominal Exam: Soft, Normal Bowel Sounds. absent: Tenderness - Extremities Exam Extremities Exam: Full ROM, Normal Capillary Refill. absent: Calf Tenderness - Back Exam Back Exam: Full ROM. absent: CVA tenderness (L), CVA tenderness (R) - Neurological Exam Neurological Exam: Alert, Awake, CN II-XII Intact Additional comments: oriented to person and place - Psychiatric Exam Psychiatric exam: Normal Affect, Normal Mood - Skin Skin Exam: Dry, Normal Color, Warm Assessment and Plan (1) Pulmonary fibrosis Status: Acute (2) Type 2 diabetes mellitus with hyperglycemia Status: Chronic (3) HTN (hypertension) Status: Chronic - Assessment and Plan (Free Text) Assessment: 81 year old female with PMH of idiopathic pulmonary fibrosis, HTN, early dementia, DM, dyslipidemia, presented to the emergency room with a two week history of progressively worsening moderate shortness of breath, associated with cough with mild yellow sputum production. CXR showed bilateral chronic interstitial fibrosis. Patient dyspneic at rest and with speaking. Mild use of accessory muscles. She was admitted in med/surg , started on IV solumedrol and pulmonary consulted 1.Idiopathic Pulmonary Fibrosis Exacerbation slowly improving with steroids and O2 via NC unable to expectorate pulmonary on consult Continue Methylprednisolone decrease dose to 40 mg IV Q12 , O2 vi anC , duonebs Will most likely need home oxygen 2. Acute Bronchitis on Levaquin IV , needs 1 more week 3. HTN monitor continue lasix, HCTZ, Valsartan 4. Early Dementia on Namenda, Remeron, Lexapro, and Aricept 5. DM type II with hyperglycemia sec to steroids continue Januvia 50 mg daily Accuchecks with ISS coverage 6. Dyslipidemia on Statin 7. Physical Deconditioning - PT consulted- rec TCU DVT prophylaxis SCD Lovenox
[2017-08-20] MEDS: Albuterol-Ipratrop 3 mg / 0.5 (3 ml) UD INH SCH ×4 (00:09→19:23)
[2017-08-20] MEDS: Insulin Lispro (humaLOG) 100 Units/ml Inj SC SCH ×4 (06:58→21:55)
[2017-08-20] MEDS: levoFLOXacin 500 mg in D5W 500 MG/100 ML BAG IVPB SCH (08:50)
[2017-08-20] MEDS: MethylPREDNISolone 40 mg Vial IV SCH ×2 (08:51→16:23)
[2017-08-20] MEDS: Pantoprazole 40 mg EC Tab PO SCH (08:52)
[2017-08-20] MEDS: Enoxaparin 40 mg Syringe SC SCH (08:52)
--- NOTE | 2017-08-20 10:55 | CP.PCM.PN ---
Subjective - Date & Time of Evaluation Date of Evaluation: 08/20/17 Time of Evaluation: 10:56 - Subjective Subjective: NO NEW CLINICAL FINDINGS CLINICALLY IMPROVING WITH O2 AND STEROIDS LUNGS-FAIR AERATION WITH RALES FOR TRANSFER TO SUBACUTE CARE OVER THE WEEKEND CONTINUE IV STEROIDS AND TAPER TO PO ON D/C Objective - Vital Signs/Intake and Output Vital Signs (last 24 hours): Temp Pulse Resp BP Pulse Ox 97.8 F 81 18 144/79 96 08/20/17 08:04 08/20/17 08:04 08/20/17 08:04 08/20/17 08:51 08/20/17 10:45 - Medications Medications: Current Medications Acetaminophen (Tylenol 325mg Tab) 650 mg PO Q6 PRN PRN Reason: Pain, Mild (1-3) Last Admin: 08/19/17 20:37 Dose: 650 mg Albuterol/Ipratropium (Duoneb 3 Mg/0.5 Mg (3 Ml) Ud) 3 ml INH RQ4 [facility] Last Admin: 08/20/17 04:15 Dose: 3 ml Albuterol/Ipratropium (Duoneb 3 Mg/0.5 Mg (3 Ml) Ud) 3 ml INH RQ2 PRN PRN Reason: Shortness of Breath Atorvastatin Calcium (Lipitor) 10 mg PO HS [facility] Last Admin: 08/19/17 22:10 Dose: 10 mg Donepezil HCl (Aricept) 10 mg PO DAILY [facility] Last Admin: 08/20/17 08:51 Dose: 10 mg Enoxaparin Sodium (Lovenox) 40 mg SC DAILY [facility] PRN Reason: Protocol Last Admin: 08/20/17 08:52 Dose: 40 mg Escitalopram Oxalate (Lexapro) 20 mg PO DAILY [facility] Last Admin: 08/20/17 08:52 Dose: 20 mg Furosemide (Lasix) 20 mg PO DAILY [facility] Last Admin: 08/20/17 08:51 Dose: 20 mg Hydrochlorothiazide (Microzide) 12.5 mg PO DAILY [facility] Last Admin: 08/20/17 08:52 Dose: 12.5 mg Levofloxacin/Dextrose (Levaquin 500mg) 500 mg in 100 mls @ 100 mls/hr IVPB DAILY [facility] PRN Reason: Protocol Last Admin: 08/20/17 08:50 Dose: 100 mls/hr Insulin Human Lispro (Humalog) 0 units SC ACHS [facility] PRN Reason: Protocol Last Admin: 08/20/17 06:58 Dose: Not Given Memantine (Namenda) 10 mg PO Q12 [facility] Last Admin: 08/20/17 08:51 Dose: 10 mg Methylprednisolone (Solu-Medrol) 40 mg IV BID [facility] Last Admin: 08/20/17 08:51 Dose: 40 mg Mirtazapine (Remeron) 30 mg PO HS [facility] Last Admin: 08/19/17 22:10 Dose: 30 mg Pantoprazole Sodium (Protonix Ec Tab) 40 mg PO DAILY [facility] Last Admin: 08/20/17 08:52 Dose: 40 mg Promethazine HCl/Dextromethorphan (Phenergan Dm Syrup) 10 ml PO Q6 PRN PRN Reason: Cough Last Admin: 08/19/17 00:16 Dose: 10 ml Sitagliptin Phosphate (Januvia) 50 mg PO DAILY [facility] Last Admin: 08/20/17 08:52 Dose: 50 mg Valsartan (Diovan) 160 mg PO DAILY [facility] Last Admin: 08/20/17 08:51 Dose: 160 mg - Labs Labs: 08/19/17 06:05 08/19/17 06:05
--- NOTE | 2017-08-20 13:32 | CP.PCM.PN ---
Subjective - Date & Time of Evaluation Date of Evaluation: 08/20/17 Time of Evaluation: 12:00 - Subjective Subjective: Pt has no fever still coughing , slight phlegm still with some SOB on exertion denies chest pain no abd pain no diarrhea Objective - Vital Signs/Intake and Output Vital Signs (last 24 hours): Temp Pulse Resp BP Pulse Ox 97.8 F 81 18 144/79 96 08/20/17 08:04 08/20/17 08:04 08/20/17 08:04 08/20/17 08:51 08/20/17 10:45 - Medications Medications: Current Medications Acetaminophen (Tylenol 325mg Tab) 650 mg PO Q6 PRN PRN Reason: Pain, Mild (1-3) Last Admin: 08/20/17 11:02 Dose: 650 mg Albuterol/Ipratropium (Duoneb 3 Mg/0.5 Mg (3 Ml) Ud) 3 ml INH RQ4 [facility] Last Admin: 08/20/17 04:15 Dose: 3 ml Albuterol/Ipratropium (Duoneb 3 Mg/0.5 Mg (3 Ml) Ud) 3 ml INH RQ2 PRN PRN Reason: Shortness of Breath Atorvastatin Calcium (Lipitor) 10 mg PO HS [facility] Last Admin: 08/19/17 22:10 Dose: 10 mg Donepezil HCl (Aricept) 10 mg PO DAILY [facility] Last Admin: 08/20/17 08:51 Dose: 10 mg Enoxaparin Sodium (Lovenox) 40 mg SC DAILY [facility] PRN Reason: Protocol Last Admin: 08/20/17 08:52 Dose: 40 mg Escitalopram Oxalate (Lexapro) 20 mg PO DAILY [facility] Last Admin: 08/20/17 08:52 Dose: 20 mg Furosemide (Lasix) 20 mg PO DAILY [facility] Last Admin: 08/20/17 08:51 Dose: 20 mg Hydrochlorothiazide (Microzide) 12.5 mg PO DAILY [facility] Last Admin: 08/20/17 08:52 Dose: 12.5 mg Levofloxacin/Dextrose (Levaquin 500mg) 500 mg in 100 mls @ 100 mls/hr IVPB DAILY [facility] PRN Reason: Protocol Last Admin: 08/20/17 08:50 Dose: 100 mls/hr Insulin Human Lispro (Humalog) 0 units SC ACHS [facility] PRN Reason: Protocol Last Admin: 08/20/17 10:53 Dose: Not Given Memantine (Namenda) 10 mg PO Q12 [facility] Last Admin: 08/20/17 08:51 Dose: 10 mg Methylprednisolone (Solu-Medrol) 40 mg IV BID [facility] Last Admin: 08/20/17 08:51 Dose: 40 mg Mirtazapine (Remeron) 30 mg PO HS [facility] Last Admin: 08/19/17 22:10 Dose: 30 mg Pantoprazole Sodium (Protonix Ec Tab) 40 mg PO DAILY [facility] Last Admin: 08/20/17 08:52 Dose: 40 mg Promethazine HCl/Dextromethorphan (Phenergan Dm Syrup) 10 ml PO Q6 PRN PRN Reason: Cough Last Admin: 08/19/17 00:16 Dose: 10 ml Sitagliptin Phosphate (Januvia) 50 mg PO DAILY [facility] Last Admin: 08/20/17 08:52 Dose: 50 mg Valsartan (Diovan) 160 mg PO DAILY [facility] Last Admin: 08/20/17 08:51 Dose: 160 mg - Labs Labs: 08/19/17 06:05 08/19/17 06:05 - Constitutional Appears: No Acute Distress - Head Exam Head Exam: NORMAL INSPECTION, NORMOCEPHALIC - Eye Exam Eye Exam: EOMI, Normal appearance Pupil Exam: NORMAL ACCOMODATION - ENT Exam ENT Exam: Mucous Membranes Moist, Normal External Ear Exam - Neck Exam Neck Exam: Full ROM. absent: Meningismus - Respiratory Exam Respiratory Exam: Rales, Rhonchi. absent: Wheezes, Respiratory Distress - Cardiovascular Exam Cardiovascular Exam: REGULAR RHYTHM, +S1, +S2 - GI/Abdominal Exam GI & Abdominal Exam: Soft, Normal Bowel Sounds. absent: Tenderness - Extremities Exam Extremities Exam: Full ROM, Normal Capillary Refill. absent: Calf Tenderness - Back Exam Back Exam: Full ROM. absent: CVA tenderness (L), CVA tenderness (R) - Neurological Exam Neurological Exam: Alert, Awake, CN II-XII Intact Additional comments: oriented to person and place - Psychiatric Exam Psychiatric exam: Normal Affect, Normal Mood - Skin Skin Exam: Dry, Normal Color, Warm Assessment and Plan (1) Pulmonary fibrosis Status: Acute (2) Type 2 diabetes mellitus with hyperglycemia Status: Chronic (3) HTN (hypertension) Status: Chronic - Assessment and Plan (Free Text) Assessment: 81 year old female with PMH of idiopathic pulmonary fibrosis, HTN, early dementia, DM, dyslipidemia, presented to the emergency room with a two week history of progressively worsening moderate shortness of breath, associated with cough with mild yellow sputum production. CXR showed bilateral chronic interstitial fibrosis. Patient dyspneic at rest and with speaking. Mild use of accessory muscles. She was admitted in med/surg , started on IV solumedrol , IV Antibiotics and Duoneb tx . Pulmonary consulted . PT consulted - rec TCU placement . Plan to d/c to [facility] for further IV abx, IV Solumedrol and Physical therapy 1.Idiopathic Pulmonary Fibrosis Exacerbation slowly improving with steroids and O2 via NC unable to expectorate pulmonary on consult Continue Methylprednisolone decreased dose to 40 mg IV Q12 , O2/NC , duonebs Will most likely need home oxygen Plan to d/c [facility] - Wednesday after 3 [place] 2. Acute Bronchitis on Levaquin IV 3. HTN monitor continue lasix, HCTZ, Valsartan 4. Early Dementia on Namenda, Remeron, Lexapro, and Aricept 5. DM type II with hyperglycemia sec to steroids continue Januvia 50 mg daily Accuchecks with ISS coverage 6. Dyslipidemia on Statin 7. Physical Deconditioning - PT consulted- rec TCU DVT prophylaxis SCD Lovenox
[2017-08-21] MEDS: Albuterol-Ipratrop 3 mg / 0.5 (3 ml) UD INH SCH ×6 (00:41→20:00)
--- NOTE | 2017-08-21 08:49 | CP.PCM.PN ---
Subjective - Date & Time of Evaluation Date of Evaluation: 08/21/17 Time of Evaluation: 08:30 - Subjective Subjective: Pt has no fever still coughing , dry still with some SOB on exertion saturation at rest off Oxygen 91-93% , we will need to do 6 minute walk to det if she desaturates further on exertion denies chest pain no abd pain no diarrhea Objective - Vital Signs/Intake and Output Vital Signs (last 24 hours): Temp Pulse Resp BP Pulse Ox 97.6 F 76 18 147/82 93 L 08/21/17 07:45 08/21/17 07:45 08/21/17 07:45 08/21/17 07:45 08/21/17 07:45 - Medications Medications: Current Medications Acetaminophen (Tylenol 325mg Tab) 650 mg PO Q6 PRN PRN Reason: Pain, Mild (1-3) Last Admin: 08/20/17 11:02 Dose: 650 mg Albuterol/Ipratropium (Duoneb 3 Mg/0.5 Mg (3 Ml) Ud) 3 ml INH RQ4 [facility] Last Admin: 08/21/17 07:13 Dose: 3 ml Albuterol/Ipratropium (Duoneb 3 Mg/0.5 Mg (3 Ml) Ud) 3 ml INH RQ2 PRN PRN Reason: Shortness of Breath Atorvastatin Calcium (Lipitor) 10 mg PO HS [facility] Last Admin: 08/20/17 21:22 Dose: 10 mg Donepezil HCl (Aricept) 10 mg PO DAILY [facility] Last Admin: 08/20/17 08:51 Dose: 10 mg Enoxaparin Sodium (Lovenox) 40 mg SC DAILY [facility] PRN Reason: Protocol Last Admin: 08/20/17 08:52 Dose: 40 mg Escitalopram Oxalate (Lexapro) 20 mg PO DAILY [facility] Last Admin: 08/20/17 08:52 Dose: 20 mg Furosemide (Lasix) 20 mg PO DAILY [facility] Last Admin: 08/20/17 08:51 Dose: 20 mg Hydrochlorothiazide (Microzide) 12.5 mg PO DAILY [facility] Last Admin: 08/20/17 08:52 Dose: 12.5 mg Levofloxacin/Dextrose (Levaquin 500mg) 500 mg in 100 mls @ 100 mls/hr IVPB DAILY [facility] PRN Reason: Protocol Last Admin: 05/25/18 08:50 Dose: 100 mls/hr Insulin Human Lispro (Humalog) 0 units SC ACHS [facility] PRN Reason: Protocol Last Admin: 08/20/17 21:55 Dose: Not Given Memantine (Namenda) 10 mg PO Q12 [facility] Last Admin: 08/20/17 21:22 Dose: 10 mg Methylprednisolone (Solu-Medrol) 40 mg IV BID [facility] Last Admin: 08/20/17 16:23 Dose: 40 mg Mirtazapine (Remeron) 30 mg PO HS [facility] Last Admin: 08/20/17 21:22 Dose: 30 mg Pantoprazole Sodium (Protonix Ec Tab) 40 mg PO DAILY [facility] Last Admin: 08/20/17 08:52 Dose: 40 mg Promethazine HCl/Dextromethorphan (Phenergan Dm Syrup) 10 ml PO Q6 PRN PRN Reason: Cough Last Admin: 08/19/17 00:16 Dose: 10 ml Sitagliptin Phosphate (Januvia) 50 mg PO DAILY [facility] Last Admin: 08/20/17 08:52 Dose: 50 mg Valsartan (Diovan) 160 mg PO DAILY [facility] Last Admin: 08/20/17 08:51 Dose: 160 mg - Labs Labs: 08/19/17 06:05 08/19/17 06:05 - Constitutional Appears: No Acute Distress - Head Exam Head Exam: NORMAL INSPECTION, NORMOCEPHALIC - Eye Exam Eye Exam: EOMI, Normal appearance Pupil Exam: NORMAL ACCOMMODATION - ENT Exam ENT Exam: Mucous Membranes Moist, Normal External Ear Exam - Neck Exam Neck Exam: Full ROM. absent: Meningismus - Respiratory Exam Respiratory Exam: + Rales, Rhonchi. absent: Wheezes, Respiratory Distress - Cardiovascular Exam Cardiovascular Exam: REGULAR RHYTHM, +S1, +S2 - GI/Abdominal Exam GI & Abdominal Exam: Soft, Normal Bowel Sounds. absent: Tenderness - Extremities Exam Extremities Exam: Full ROM, Normal Capillary Refill. absent: Calf Tenderness - Back Exam Back Exam: Full ROM. absent: CVA tenderness (L), CVA tenderness (R) - Neurological Exam Neurological Exam: Alert, Awake, CN II-XII Intact Additional comments: oriented to person and place - Psychiatric Exam Psychiatric exam: Normal Affect, Normal Mood - Skin Skin Exam: Dry, Normal Color, Warm Assessment and Plan (1) Pulmonary fibrosis Status: Acute (2) Type 2 diabetes mellitus with hyperglycemia Status: Chronic (3) HTN (hypertension) Status: Chronic (4) Bronchitis Status: Acute - Assessment and Plan (Free Text) Assessment: 81 year old female with PMH of idiopathic pulmonary fibrosis, HTN, early dementia, DM, dyslipidemia, presented to the emergency room with a two week history of progressively worsening moderate shortness of breath, associated with cough with mild yellow sputum production. CXR showed bilateral chronic interstitial fibrosis. Patient dyspneic at rest and with speaking. Mild use of accessory muscles. She was admitted in med/surg , started on IV solumedrol , IV Antibiotics and Duoneb tx . Pulmonary consulted . PT consulted - rec TCU placement . Plan to d/c to [facility] for further IV abx, IV Solumedrol and Physical therapy 1.Idiopathic Pulmonary Fibrosis Exacerbation slowly improving with steroids and O2 via NC unable to expectorate pulmonary on consult Continue Methylprednisolone decreased dose to 40 mg IV Q12 , O2/NC , duonebs Will most likely need home oxygen Plan to d/c [facility] in am 2. Acute Bronchitis on Levaquin IV 3. HTN monitor continue lasix, HCTZ, Valsartan 4. Early Dementia on Namenda, Remeron, Lexapro, and Aricept 5. DM type II with hyperglycemia sec to steroids continue Januvia 50 mg daily Accuchecks with ISS coverage 6. Dyslipidemia on Statin 7. Physical Deconditioning - PT consulted- rec TCU DVT prophylaxis SCD Lovenox
[2017-08-21] MEDS: levoFLOXacin 500 mg in D5W 500 MG/100 ML BAG IVPB SCH (08:53)
[2017-08-21] MEDS: Enoxaparin 40 mg Syringe SC SCH (08:53)
[2017-08-21] MEDS: MethylPREDNISolone 40 mg Vial IV SCH (08:54)
[2017-08-21] MEDS: Pantoprazole 40 mg EC Tab PO SCH (08:55)
[2017-08-21] MEDS: Insulin Lispro (humaLOG) 100 Units/ml Inj SC SCH ×4 (08:56→22:19)
--- NOTE | 2017-08-21 10:47 | CP.PCM.PN ---
Subjective - Date & Time of Evaluation Date of Evaluation: 08/21/17 Time of Evaluation: 10:47 - Subjective Subjective: SOB IMPROVED NO COMPLAINTS Objective - Vital Signs/Intake and Output Vital Signs (last 24 hours): Temp Pulse Resp BP Pulse Ox 97.6 F 76 18 147/82 93 L 08/21/17 07:45 08/21/17 07:45 08/21/17 07:45 08/21/17 08:54 08/21/17 07:45 - Medications Medications: Current Medications Acetaminophen (Tylenol 325mg Tab) 650 mg PO Q6 PRN PRN Reason: Pain, Mild (1-3) Last Admin: 08/20/17 11:02 Dose: 650 mg Albuterol/Ipratropium (Duoneb 3 Mg/0.5 Mg (3 Ml) Ud) 3 ml INH RQ4 BRIGETTE Last Admin: 08/21/17 07:13 Dose: 3 ml Albuterol/Ipratropium (Duoneb 3 Mg/0.5 Mg (3 Ml) Ud) 3 ml INH RQ2 PRN PRN Reason: Shortness of Breath Atorvastatin Calcium (Lipitor) 10 mg PO HS [facility] Last Admin: 08/20/17 21:22 Dose: 10 mg Donepezil HCl (Aricept) 10 mg PO DAILY [facility] Last Admin: 08/21/17 08:56 Dose: 10 mg Enoxaparin Sodium (Lovenox) 40 mg SC DAILY [facility] PRN Reason: Protocol Last Admin: 08/21/17 08:53 Dose: 40 mg Escitalopram Oxalate (Lexapro) 20 mg PO DAILY [facility] Last Admin: 08/21/17 08:55 Dose: 20 mg Furosemide (Lasix) 20 mg PO DAILY [facility] Last Admin: 08/21/17 08:54 Dose: 20 mg Hydrochlorothiazide (Microzide) 12.5 mg PO DAILY [facility] Last Admin: 08/21/17 08:54 Dose: 12.5 mg Levofloxacin/Dextrose (Levaquin 500mg) 500 mg in 100 mls @ 100 mls/hr IVPB DAILY [facility] PRN Reason: Protocol Last Admin: 08/21/17 08:53 Dose: 100 mls/hr Insulin Human Lispro (Humalog) 0 units SC ACHS [facility] PRN Reason: Protocol Last Admin: 08/21/17 08:56 Dose: Not Given Memantine (Namenda) 10 mg PO Q12 [facility] Last Admin: 08/21/17 08:55 Dose: 10 mg Methylprednisolone (Solu-Medrol) 40 mg IV BID [facility] Last Admin: 08/21/17 08:54 Dose: 40 mg Mirtazapine (Remeron) 30 mg PO HS [facility] Last Admin: 08/20/17 21:22 Dose: 30 mg Pantoprazole Sodium (Protonix Ec Tab) 40 mg PO DAILY [facility] Last Admin: 08/21/17 08:55 Dose: 40 mg Promethazine HCl/Dextromethorphan (Phenergan Dm Syrup) 10 ml PO Q6 PRN PRN Reason: Cough Last Admin: 08/19/17 00:16 Dose: 10 ml Sitagliptin Phosphate (Januvia) 50 mg PO DAILY [facility] Last Admin: 08/21/17 08:54 Dose: 50 mg Valsartan (Diovan) 160 mg PO DAILY [facility] Last Admin: 08/21/17 08:55 Dose: 160 mg - Labs Labs: 08/19/17 06:05 08/19/17 06:05 - Constitutional Appears: Chronically Ill - Head Exam Head Exam: ATRAUMATIC, NORMAL INSPECTION, NORMOCEPHALIC - Eye Exam Eye Exam: EOMI, Normal appearance, PERRL Pupil Exam: NORMAL ACCOMODATION, PERRL - ENT Exam ENT Exam: Mucous Membranes Moist, Normal Exam - Neck Exam Neck Exam: Full ROM, Normal Inspection. absent: Lymphadenopathy - Respiratory Exam Respiratory Exam: Decreased Breath Sounds, Rales, NORMAL BREATHING PATTERN - Cardiovascular Exam Cardiovascular Exam: REGULAR RHYTHM, +S1, +S2. absent: Murmur - GI/Abdominal Exam GI & Abdominal Exam: Soft, Normal Bowel Sounds. absent: Tenderness - Rectal Exam Rectal Exam: NORMAL INSPECTION - Extremities Exam Extremities Exam: Full ROM, Normal Capillary Refill, Normal Inspection. absent : Joint Swelling, Pedal Edema - Back Exam Back Exam: NORMAL INSPECTION - Neurological Exam Neurological Exam: Alert, Awake, CN II-XII Intact, Normal Gait, Oriented x3 - Psychiatric Exam Psychiatric exam: Normal Affect, Normal Mood - Skin Skin Exam: Dry, Intact, Normal Color, Warm Assessment and Plan - Assessment and Plan (Free Text) Assessment: ACUTE EXAC OF PULM FIBROSIS Plan: TAPER STEROIDS FOR TRANSFER TO [facility] CARE IN AM
[2017-08-21] MEDS: Promethazine DM 12.5 mg-30 mg/10 ml Syrup PO PRN (16:07)
[2017-08-22] MEDS: Albuterol-Ipratrop 3 mg / 0.5 (3 ml) UD INH SCH ×5 (00:52→15:51)
[2017-08-22 07:56] VITALS: RESP 18; TEMP 97.7; O2SAT 94
[2017-08-22] MEDS: Insulin Lispro (humaLOG) 100 Units/ml Inj SC SCH ×3 (08:30→17:00)
[2017-08-22] MEDS: Enoxaparin 40 mg Syringe SC SCH (08:38)
[2017-08-22] MEDS: Pantoprazole 40 mg EC Tab PO SCH (08:40)
[2017-08-22] MEDS: levoFLOXacin 500 mg in D5W 500 MG/100 ML BAG IVPB SCH (08:40)
[2017-08-22] MEDS ORDERED: MethylPREDNISolone 40 mg Vial IV SCH (09:00)
--- NOTE | 2017-08-22 10:09 | CP.PCM.DIS ---
Provider - Provider Date of Admission: 08/17/17 13:37 Attending physician: Delia Snider DO Time Spent in preparation of Discharge (in minutes): 30 Hospital Course - Lab Results Lab Results: Micro Results 08/17/17 10:40 Blood Blood Culture - Preliminary NO GROWTH AFTER 4 DAYS 08/17/17 10:40 Blood Blood Culture - Preliminary NO GROWTH AFTER 4 DAYS Most Recent Lab Values WBC 13.2 K/uL (4.8-10.8) H 08/19/17 06:05 RBC 4.22 Mil/uL (3.80-5.20) 08/19/17 06:05 Hgb 11.8 g/dL (12.0-16.0) L 08/19/17 06:05 Hct 35.8 % (34.0-47.0) 08/19/17 06:05 MCV 84.9 fl (81.0-99.0) 08/19/17 06:05 MCH 27.9 pg (27.0-31.0) 08/19/17 06:05 MCHC 32.9 g/dL (33.0-37.0) L 08/19/17 06:05 RDW 16.5 % (11.5-14.5) H 08/19/17 06:05 Plt Count 277 K/uL (130-400) 08/19/17 06:05 MPV 8.2 fl (7.2-11.7) 08/17/17 10:40 Neut % (Auto) 55.1 % (50.0-75.0) 08/17/17 10:40 Lymph % (Auto) 35.0 % (20.0-40.0) 08/17/17 10:40 Archer % (Auto) 6.1 % (0.0-10.0) 08/17/17 10:40 Eos % (Auto) 3.3 % (0.0-4.0) 08/17/17 10:40 Baso % (Auto) 0.5 % (0.0-2.0) 08/17/17 10:40 Neut # (Auto) 5.5 K/uL (1.8-7.0) 08/17/17 10:40 Lymph # (Auto) 3.5 K/uL (1.0-4.3) 08/17/17 10:40 Archer # (Auto) 0.6 K/uL (0.0-0.8) 08/17/17 10:40 Eos # (Auto) 0.3 K/uL (0.0-0.7) 08/17/17 10:40 Baso # (Auto) 0.1 K/uL (0.0-0.2) 08/17/17 10:40 pCO2 41 mm/Hg (35-45) 08/18/17 08:20 pO2 55 mm/Hg (80-100) L 08/18/17 08:20 HCO3 24.6 mmol/L (21-28) 08/18/17 08:20 ABG pH 7.39 (7.35-7.45) 08/18/17 08:20 ABG Total CO2 26.1 mmol/L (22-28) 08/18/17 08:20 ABG O2 Saturation 92.5 % (95-98) L 08/18/17 08:20 ABG O2 Content 16.1 ML/dL (15-23) 08/18/17 08:20 ABG Base Excess -0.2 mmol/L (-2.0-3.0) 08/18/17 08:20 ABG Hemoglobin 12.8 g/dL (11.7-17.4) 08/18/17 08:20 ABG Carboxyhemoglobin 2.1 % (0.5-1.5) H 08/18/17 08:20 POC ABG HHb (Measured) 7.3 % (0.0-5.0) H 08/18/17 08:20 ABG Methemoglobin 1.1 % (0.0-3.0) 08/18/17 08:20 ABG O2 Capacity 17.4 mL/dL (16-24) 08/18/17 08:20 Erasmo Test Yes 08/18/17 08:20 A-a O2 Difference 43.0 mm/Hg 08/18/17 08:20 Hgb O2 Saturation 89.5 % (95.0-98.0) L 08/18/17 08:20 Liter Flow 2 08/17/17 11:15 Vent Mode 3l nc 08/18/17 06:25 FiO2 21.0 % 08/18/17 08:20 Sodium 141 mmol/l (132-148) 08/19/17 06:05 Potassium 4.0 MMOL/L (3.6-5.0) 08/19/17 06:05 Chloride 101 mmol/L (98-107) 08/19/17 06:05 Carbon Dioxide 26 mmol/L (22-30) 08/19/17 06:05 Anion Gap 18 (10-20) 08/19/17 06:05 BUN 26 mg/dl (7-17) H 08/19/17 06:05 Creatinine 0.6 mg/dl (0.7-1.2) L 08/19/17 06:05 Est GFR ( Amer) > 60 08/19/17 06:05 Est GFR (Non-Af Amer) > 60 08/19/17 06:05 POC Glucose (mg/dL) 71 mg/dL (65-110) 08/22/17 05:23 Random Glucose 167 mg/dL (65-105) H 08/19/17 06:05 Calcium 9.0 mg/dL (8.4-10.2) 08/19/17 06:05 Total Bilirubin 0.5 mg/dl (0.2-1.3) 08/17/17 10:40 AST 37 U/L (14-36) H D 08/17/17 10:40 ALT 38 U/L (9-52) 08/17/17 10:40 Alkaline Phosphatase 58 U/L (38-126) 08/17/17 10:40 Troponin I 0.0200 ng/mL (0.00-0.120) 08/17/17 10:40 NT-Pro-B Natriuret Pep 520 pg/ml (0-900) 08/17/17 10:40 Total Protein 7.1 G/DL (6.3-8.2) 08/17/17 10:40 Albumin 3.4 g/dL (3.5-5.0) L 08/17/17 10:40 Globulin 3.6 gm/dL (2.2-3.9) 08/17/17 10:40 Albumin/Globulin Ratio 0.9 (1.0-2.1) L 08/17/17 10:40 Procalcitonin < 0.05 NG/ML (0.19-0.49) L 08/18/17 06:35 - Hospital Course Hospital Course: 81 year old female with PMH of idiopathic pulmonary fibrosis, HTN, early dementia, DM, dyslipidemia, presented to the emergency room with a two week history of progressively worsening moderate shortness of breath, associated with cough with mild yellow sputum production. CXR showed bilateral chronic interstitial fibrosis. Patient dyspneic at rest and with speaking. Mild use of accessory muscles. She was admitted in med/surg , started on IV solumedrol , IV Antibiotics and Duoneb tx. Pulmonary consulted. PT consulted - rec [facility]KTOR[facility] placement. Plan to d/c to [facility] for further IV abx, IV Solumedrol and Physical therapy 1.Idiopathic Pulmonary Fibrosis Exacerbation slowly improving with steroids and O2 via NC unable to expectorate pulmonary on consult Continue Methylprednisolone decreased dose to 40 mg IV Q12 - SEND ON MEDROL DOSE PACK, O2/NC , duonebs Will most likely need home oxygen Plan to d/c VIKTORIYA today 2. Acute Bronchitis on Levaquin IV 3. HTN monitor continue lasix, HCTZ, Valsartan 4. Early Dementia on Namenda, Remeron, Lexapro, and Aricept 5. DM type II with hyperglycemia sec to steroids continue Januvia 50 mg daily Accuchecks with ISS coverage 6. Dyslipidemia on Statin 7. Physical Deconditioning - PT consulted- rec TCU DVT prophylaxis SCD Lovenox Discharge Exam - Head Exam Head Exam: ATRAUMATIC, NORMAL INSPECTION, NORMOCEPHALIC - Eye Exam Eye Exam: EOMI, Normal appearance, PERRL Pupil Exam: NORMAL ACCOMODATION - ENT Exam ENT Exam: Mucous Membranes Moist, Normal Oropharynx - Neck Exam Neck exam: Full Rom, Normal Inspection - Respiratory Exam Respiratory Exam: Clear to PA & Lateral, NORMAL BREATHING PATTERN - Cardiovascular Exam Cardiovascular Exam: RRR, +S1, +S2 - GI/Abdominal Exam GI & Abdominal Exam: Normal Bowel Sounds, Soft. absent: Mass, Organomegaly, Tenderness - Extremities Exam Extremities exam: normal capillary refill, pedal pulses present - Back Exam Back exam: absent: CVA tenderness (L), CVA tenderness (R) - Neurological Exam Neurological exam: Alert, Oriented x3 - Psychiatric Exam Psychiatric exam: Normal Affect, Normal Mood - Skin Skin Exam: Dry, Normal Color Discharge Plan - Discharge Medications Prescriptions: Methylprednisolone [Medrol Dose Pack (21 tabs)] 4 mg PO ASDIR #21 mg - Follow Up Plan Condition: FAIR Disposition: TRANSF TO SNF Instructions: Idiopathic Pulmonary Fibrosis (DC) Referrals: Kevin Macario MD [Staff Provider] -
[2017-08-22 15:46] VITALS: BP 146/77; PULSE 73
== END 2017-08-22 18:22 | DRG 197 ==
LOC: H.ER 10:02 → UNDOADMIN 12:10 → H.ERHOLD 12:10 → INTOOBSV 13:37 → OBSVTOIN 13:37 → H.ERHOLD 13:37 → H.MEDSURG1 15:52
PROVIDERS: ADMIT Student in an Organized Health Care Education/Training Program; ATTEND Student in an Organized Health Care Education/Training Program
PROC: 3E0F7GC Introduction of Other Therapeutic Substance into Respiratory Tract, Via Natural or Artificial Opening (ICD-10-PCS; principal; 2017-08-17)
DX: J84.112 Idiopathic pulmonary fibrosis (principal); J44.0 Chronic obstructive pulmonary disease with (acute) lower respiratory infection; E11.65 Type 2 diabetes mellitus with hyperglycemia; E78.5 Hyperlipidemia, unspecified; F03.90 Unspecified dementia, unspecified severity, without behavioral disturbance, psychotic disturbance, mood disturbance, and anxiety; I10 Essential (primary) hypertension; J20.9 Acute bronchitis, unspecified; R09.02 Hypoxemia; Z79.51 Long term (current) use of inhaled steroids; Z79.84 Long term (current) use of oral hypoglycemic drugs; Z79.899 Other long term (current) drug therapy; M54.9 Dorsalgia, unspecified; R06.03 Acute respiratory distress; R07.89 Other chest pain; R09.89 Other specified symptoms and signs involving the circulatory and respiratory systems